=== PATIENT | female | born 1975 | race Two or more races ===

== ENCOUNTER 2018-08-15 18:08 | Emergency (ER) | payer OTHER ==
[~2018-08-15] VITALS: Ht 170.2 cm; Wt 104.3 kg
[2018-08-15] MEDS ORDERED: METFORMIN HCL1000 M1 ORAL (18:26)
[2018-08-15] MEDS ORDERED: ALBUTEROL SULF8.5 GM INH (18:27)
[2018-08-15 18:30] VITALS: BP 137/80
[2018-08-15] MEDS ORDERED: Ketorolac 30mg Inj IM ONE (19:00)
[2018-08-15] MEDS ORDERED: Methocarbamol 500mg tab ORAL ONE (19:00)
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
[2018-08-15] MEDS ORDERED: TYLENOL EXTRA500 MG ORAL (20:35)
[2018-08-15] MEDS ORDERED: ROBAXIN500 MG PO (20:35)
[2018-08-15] MEDS ORDERED: LIDOCAINE700 M1 TP (20:35)
[2018-08-15 21:00] VITALS: BP 135/79
--- NOTE | 2018-08-16 10:18 | Diagnostic Imaging Report ---
Indication: Reason For Exam: PAIN Technique: 3 views of the lumbar spine Comparison: None Findings:Bony alignment is normal. Vertebral body heights are preserved. The disc spaces are preserved. Pedicles are intact. Sacral arches are preserved. Sacroiliac joints are preserved. Surrounding soft tissues are unremarkable Impression: Negative This agrees with the preliminary interpretation provided overnight by Dr. Taylor
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
== END 2018-08-15 20:50 | disposition home or self-care (01) ==
LOC: EMR 18:45
DX: S16.1XXA Strain of muscle, fascia and tendon at neck level, initial encounter (principal); S39.012A Strain of muscle, fascia and tendon of lower back, initial encounter; S20.219A Contusion of unspecified front wall of thorax, initial encounter; V43.52XA Car driver injured in collision with other type car in traffic accident, initial encounter; Y92.410 Unspecified street and highway as the place of occurrence of the external cause; J84.10 Pulmonary fibrosis, unspecified; J45.909 Unspecified asthma, uncomplicated; E11.9 Type 2 diabetes mellitus without complications; F32.9 Major depressive disorder, single episode, unspecified; K76.0 Fatty (change of) liver, not elsewhere classified
CPT/HCPCS: 71250; 72020; 72040; 96372; 99284; J1885